=== PATIENT | female | born 1965 | race Caucasian/White ===

== ENCOUNTER → 2025-01-28 | Outpatient (CLI) | payer MEDICARE, OTHER, SELFPAY ==
--- NOTE | 2025-01-28 12:10 | RAD_ITS ---
PROCEDURE: ABDOMEN SINGLE VIEW 01/28/2025 REASON FOR EXAM: CONFIRM POSITION OF PD CATH TECHNIQUE: Two-view supine abdomen COMPARISON: None provided. RAD/Abdomen Single View IMPRESSION: A peritoneal dialysis catheter is seen coiled the central to left pelvis. Right upper quadrant abdominal surgical clips are seen. The bowel-gas pattern is unremarkable. Mild degenerative changes of the spine and sacroiliac joints are noted. Mild a symmetric left hip degenerative changes are seen. Reading Location: [id number]
== END | disposition home or self-care (01) ==
LOC: RAD 11:56
PROVIDERS: Referring Provider Internal Medicine Nephrology; Visit Provider Internal Medicine Nephrology
DX: T85.691A Other mechanical complication of intraperitoneal dialysis catheter, initial encounter (principal); N18.6 End stage renal disease
CPT/HCPCS: 74018

== ENCOUNTER 2025-04-13 07:47 | Outpatient (CLI) | payer MEDICARE, OTHER, SELFPAY ==
[2025-04-13 08:04] VITALS: BP 190/70; PULSE 79; RESP 16; TEMP 36.1; O2SAT 100; BMI 24.9
[2025-04-13 08:56] VITALS: BP 189/64; PULSE 75; RESP 16; TEMP 36.1
[2025-04-13 09:56] VITALS: BP 193/67; PULSE 74; RESP 16; TEMP 36.2; O2SAT 100
[2025-04-13 10:48] VITALS: BP 188/60; PULSE 69; RESP 16; TEMP 36.1
[2025-04-13 11:48] VITALS: BP 191/62; PULSE 73; RESP 16; TEMP 36.2; O2SAT 100
[2025-04-13 12:24] VITALS: BP 182/62; PULSE 72; RESP 16; TEMP 36.2; O2SAT 100
== END 2025-04-13 23:59 | disposition home or self-care (01) ==
PROVIDERS: Referring Provider Internal Medicine Nephrology; Visit Provider Internal Medicine Nephrology
DX: N18.9 Chronic kidney disease, unspecified (principal); D63.1 Anemia in chronic kidney disease
CPT/HCPCS: 36430; 86850; 86900; 86901; P9016; A4216